=== PATIENT | female | born 1990 | race American Indian/Alaskan Native ===

== ENCOUNTER 2017-12-29 14:19 | Outpatient (CLI) | payer MEDICAID ==
[2017-12-29 16:35] LABS: Hemoglobin 10.4 gm/dl (10.1-14.3); Mean Corpuscular HGB Conc 33 % (30-34); Mean Corpuscular Volume 79 fl (79-97); Platelet Count 247 K/mm3 (140-440); Red Blood Count 4.06 M/mm3 (3.65-5.03)
[2017-12-29 16:40] LABS: Bacteria,Urine 2+ /HPF (Negative); Bilirubin,Urine NEG (Negative); Blood,Urine NEG (Negative); Color,Urine Yellow (Yellow); Mucus,Urine 3+ /HPF; Urobilinogen,Urine < 2.0 mg/dL (<2.0)
[2017-12-29 16:41] LABS: Mean Corpuscular Hemoglobin 26 pg (28-32)
[2017-12-29 16:47] LABS: Uric Acid 4.9 mg/dL (3.5-7.6)
[2017-12-29 16:48] LABS: Alanine Aminotransferase 13 units/L (7-56)
[2017-12-29 17:32] VITALS: BP 155/103
== END 2017-12-29 17:40 | disposition home or self-care (01) ==
LOC: TRG 14:19
PROVIDERS: ATTEND Obstetrics & Gynecology
DX: O47.03 False labor before 37 completed weeks of gestation, third trimester (principal); Z3A.37 37 weeks gestation of pregnancy
CPT/HCPCS: 36415; 59025; 81001; 82565; 83615; 84450; 84460; 84550; 85027

== ENCOUNTER 2018-01-12 08:39 | Inpatient (IN) | payer MEDICAID ==
[2018-01-12] MEDS ORDERED: MINERAL OIL PO PRN (09:30)
[2018-01-12] MEDS ORDERED: STADOL IV PRN (09:30)
[2018-01-12] MEDS ORDERED: BRETHINE IVP PRN (09:30)
[2018-01-12] MEDS ORDERED: BRETHINE SUB-Q PRN (10:16)
[2018-01-12] MEDS ORDERED: CERVIDIL VG ONE (10:16)
[2018-01-12] MEDS ORDERED: PITOCin/NS 20 UNIT/1000ML DRIP 20 UNITS/1,000 ML BAG IV SCH (10:20)
[2018-01-12] MEDS ORDERED: XYLOCAINE 2% INFILTRATI ONE (10:22)
[2018-01-12] MEDS ORDERED: SUBLIMAZE IV PRN (10:22)
[2018-01-12 10:53] LABS: Hematocrit 31.8 % (30.3-42.9); Hemoglobin 10.5 gm/dl (10.1-14.3); Mean Corpuscular HGB Conc 33 % (30-34); Mean Corpuscular Volume 78 fl (79-97); Platelet Count 223 K/mm3 (140-440); Red Blood Count 4.06 M/mm3 (3.65-5.03); Red Cell Distribution Width 16.2 % (13.2-15.2)
[2018-01-12 10:55] LABS: Mean Corpuscular Hemoglobin 26 pg (28-32)
[2018-01-12] MEDS: LACTATED RINGERS 1,000 ML IV SCH ×2 (11:27→19:49)
[2018-01-12 14:59] LABS: Alanine Aminotransferase 12 units/L (7-56); Uric Acid 5.1 mg/dL (3.5-7.6)
[2018-01-12 15:42] LABS: Bacteria,Urine 2+ /HPF (Negative); Bilirubin,Urine NEG (Negative); Blood,Urine SM (Negative); Color,Urine Yellow (Yellow); Mucus,Urine FEW /HPF; Urobilinogen,Urine < 2.0 mg/dL (<2.0)
[2018-01-12] MEDS ORDERED: PITOCin/NS 30 UNIT/500ML 30 UNITS/500 ML BAG IV SCH (22:00)
[2018-01-12] MEDS ORDERED: ZOFRAN ONE (22:34)
[2018-01-13] MEDS ORDERED: XYLOCAINE 2% INFILTRATI ONE (00:18)
--- NOTE | 2018-01-13 00:39 | History and Physical Report ---
History of Present Illness Date of examination: 01/12/18 Date of admission: 01/12/18 08:39 Chief complaint: I'm here to be induced History of present illness: Patient is a 27 year old who presents for induction of labor at 39.6 weeks gestation for induced hypertension. 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 Past History Past Medical History: no pertinent history Past Surgical History: no surgical history [employer]IST History: herpes, trichomonas Family/Genetic History: none Social history: single - Obstetrical History Expected Date of Delivery: 01/13/18 Actual Gestation: 40 Week(s) 0 Day(s) : 2 Number of Living Children: 0 Medications and Allergies Allergies Allergy/AdvReac Type Severity Reaction Status Date / Time No Known Allergies Allergy Unverified 12/29/17 15:27 Home Medications Medication Instructions Recorded Confirmed Last Taken Type Pnv,Calcium 72/Iron/Folic Acid 1 tab PO DAILY 12/29/17 01/12/18 Unknown History [Pnv Plus Multivit Tab] Active Meds: Active Medications Butorphanol Tartrate (Stadol) 2 mg IV Q2H PRN PRN Reason: Pain , Severe (7-10) Ephedrine Sulfate (Ephedrine Sulfate) 10 mg IV Q2M PRN PRN Reason: Hypotension Fentanyl (Sublimaze) 100 mcg IV Q2H PRN PRN Reason: Labor Pain Last Admin: 01/12/18 21:12 Dose: 100 mcg Lactated Ringer's (Lactated Ringers) 1,000 mls @ 125 mls/hr IV DIRECT PEPPER Last Admin: 01/12/18 19:49 Dose: 125 mls/hr Oxytocin/Sodium Chloride (Pitocin/Ns 20 Unit/1000ml Drip) 20 units in 1,000 mls @ 125 mls/hr IV DIRECT PEPPER Oxytocin/Sodium Chloride (Pitocin/Ns 30 Unit/500ml) 30 units in 500 mls @ 4 mls /hr IV TITR PEPPER; Protocol Mineral Oil (Mineral Oil) 30 ml PO QHS PRN PRN Reason: Constipation Terbutaline Sulfate (Brethine) 0.25 mg SUB-Q ONCE PRN PRN Reason: Hyperstimulation/Hypertonicity Terbutaline Sulfate (Brethine) 0.25 mg IVP ONCE PRN PRN Reason: Hyperstimulation/Hypertonicity Review of Systems All systems: negative Cardiovascular: edema Genitourinary: pelvic pain, contractions - Vital Signs Vital signs: Vital Signs Pulse Pulse Ox 63 88 01/12/18 09:17 01/12/18 09:17 Temp Pulse Resp BP Pulse Ox 99.4 F 75 18 183/77 85 01/12/18 20:00 01/13/18 00:34 01/12/18 20:00 01/12/18 23:40 01/13/18 00:34 - Physical Exam Breasts: Positive: deferred Cardiovascular: Regular rate, Normal S1, Normal S2 Lungs: Positive: Clear to auscultation, Normal air movement Abdomen: Positive: normal appearance, soft, normal bowel sounds Genitourinary (Female): Positive: normal external genitalia, normal perenium Vulva: both: normal Vagina: Positive: normal moisture Uterus: Positive: normal size, normal contour Extremities: Positive: normal Deep Tendon Reflex Grade: Normal +2 Results Result Diagrams: 01/12/18 10:05 01/12/18 10:05 Abnormal lab results 01/12/18 01/12/18 01/12/18 Range/Units 10:05 10:05 Unknown MCV 78 L (79-97) fl MCH 26 L (28-32) pg RDW 16.2 H (13.2-15.2) % Creatinine 0.5 L (0.7-1.2) mg/dL Lactate Dehydrogenase 194 H (91-180) units/L Urine WBC (Auto) 30.0 H (0.0-6.0) /HPF All other labs normal. Assessment and Plan IUP at 39.6 weeks here for induction of labor due to PIH. Admit to L&D. Place cervidil, remove at 2230. Anticipate .
--- NOTE | 2018-01-13 00:45 | Procedure Note ---
OB Delivery Note - Delivery Date of Delivery: 01/13/18 Surgeon: COMFORT GIRON Estimated blood loss: 200cc - Vaginal Delivery presentation: vertex Delivery position: OA Intrapartum events: precipitous labor- <3hr Delivery induction: cervidil Delivery monitor: external FHT, external uterine Route of delivery: Delivery placenta: spontaneous Delivery cord: nuchal cord Episiotomy: none Delivery laceration: 1st degree Delivery repair: chromic Anesthesia: none Delivery comments: Viable male delivered over intact perineum with loose nuchal reduced on perineum. Weight 6 pounds 7 ounces. Apgars 9,9. Small 1st laceration repaired with 2.0 chromic. Placenta delivered spontaneously and intact with 3vc. Patient tolerated procedure well. Excellent hemostasis. - A at 1 minute: 9 at 5 minutes: 9 Infant Gender: Male (6 pounds 7 ounces)
[2018-01-13] MEDS ORDERED: BENADRYL PO PRN (03:05)
[2018-01-13] MEDS ORDERED: NORCO 5/325 PO PRN (03:05)
[2018-01-13] MEDS ORDERED: SODIUM CHLORIDE FLUSH SYRINGE 10 ML IV NR (03:05)
[2018-01-13] MEDS ORDERED: MILK OF MAGNESIA PO PRN (03:05)
[2018-01-13] MEDS ORDERED: TUCKS PAD TP PRN (03:05)
[2018-01-13] MEDS ORDERED: TYLENOL PO PRN (03:05)
[2018-01-13] MEDS ORDERED: PHENERGAN PR PRN (03:05)
[2018-01-13] MEDS ORDERED: LANSINOH TP PRN (03:05)
[2018-01-13] MEDS ORDERED: DULCOLAX PR PRN (03:05)
[2018-01-13] MEDS ORDERED: PHENERGAN PO PRN (03:05)
[2018-01-13] MEDS ORDERED: ZOFRAN IV PRN (03:05)
[2018-01-13] MEDS: MOTRIN PO SCH ×3 (05:30→19:14)
[2018-01-13] MEDS: SENOKOT S PO SCH ×2 (05:31→19:14)
[2018-01-13] MEDS: PRENATAL VITAMIN PO SCH (11:12)
[2018-01-13] MEDS: COLACE PO SCH (11:13)
[2018-01-13 14:17] LABS: Hematocrit 28.1 % (30.3-42.9); Hemoglobin 9.1 gm/dl (10.1-14.3)
[2018-01-14] MEDS ORDERED: BOOSTRIX IM ONE (06:00)
[2018-01-14] MEDS: MOTRIN PO SCH ×3 (06:10→13:08)
[2018-01-14] MEDS: PRENATAL VITAMIN PO SCH (09:13)
[2018-01-14] MEDS: COLACE PO SCH ×2 (09:13)
--- NOTE | 2018-01-14 10:41 | Progress Note ---
Subjective - Subjective Date of service: 01/13/18 Interval history: Patient is a 27 year old who presents for induction of labor at 39.6 weeks gestation for induced hypertension. 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 Objective - Vital Signs Latest vital signs: Vital Signs Temp Pulse Resp BP BP Pulse Ox 01/14/18 07:46 97.7 F 80 16 143/79 99 01/14/18 00:00 98.7 F 74 18 115/79 01/13/18 20:00 98.7 F 66 16 114/76 01/13/18 17:28 98.3 F 91 H 18 129/68 100 01/13/18 12:00 97.8 F 86 18 124/72 100 Intake and Output 01/13/18 01/14/18 01/14/18 22:59 06:59 14:59 Intake Total 1140 Balance 1140 Intake: Oral 720 Intake, Free Water 420 Other: Total, Intake Amount 360 # Voids Void 1 - Labs Labs: Abnormal lab results 01/13/18 Range/Units 14:04 Hgb 9.1 L (10.1-14.3) gm/dl Hct 28.1 L (30.3-42.9) %
--- NOTE | 2018-01-14 10:43 | Discharge Summary ---
Providers - Providers Date of Admission: 01/12/18 08:39 Date of discharge: 01/14/18 Attending physician: COMFORT GIRON Primary care physician: COMFORT GIRON Hospitalization Reason for admission: induction of labor Delivery: Episiotomy: none Laceration: 1st degree complications: none Discharge diagnosis: IUP at term delivered baby: male Hospital course: unremarkable Condition at discharge: Good Disposition: DC-01 TO HOME OR SELFCARE Plan - Discharge Medications Prescriptions: Ibuprofen [Motrin] 800 mg PO Q8HR PRN #40 tablet PRN Reason: Pain, Moderate (4-6) - Provider Discharge Summary Activity: routine, no sex for 6 weeks, no heavy lifting 4 weeks, no strenuous exercise Diet: routine Instructions: routine Additional instructions: [] Smoking cessation referral if applicable(refer to patient education folder for contact #) [] Refer to [facility] Booklet Call your doctor immediately for: * Fever > 100.5 * Heavy vaginal bleeding ( >1 pad per hour) * Severe persistent headache * Shortness of breath * Reddened, hot, painful area to leg or breast * Drainage or odor from incision. * Keep incision clean and dry at all times and follow doctor's instructions regarding bathing/showering - Follow up plan Follow up: COMFORT GIRON MD [Primary Care Provider] - 6 Weeks
[2018-01-14 19:37] VITALS: BP 127/75
== END 2018-01-14 20:00 | disposition home or self-care (01) | DRG 774 ==
LOC: LD 08:39 → OB 01-13 02:15
PROVIDERS: ADMIT Obstetrics & Gynecology; ATTEND Obstetrics & Gynecology
PROC: 10E0XZZ Delivery of Products of Conception, External Approach (ICD-10-PCS; principal; 2018-01-13)
PROC: 3E0334Z Introduction of Serum, Toxoid and Vaccine into Peripheral Vein, Percutaneous Approach (ICD-10-PCS; 2018-01-13)
PROC: 3E0P7VZ Introduction of Hormone into Female Reproductive, Via Natural or Artificial Opening (ICD-10-PCS; 2018-01-13)
PROC: 0HQ9XZZ Repair Perineum Skin, External Approach (ICD-10-PCS; 2018-01-13)
DX: O13.4 Gestational [pregnancy-induced] hypertension without significant proteinuria, complicating childbirth (principal); O62.3 Precipitate labor; O69.81X0 Labor and delivery complicated by cord around neck, without compression, not applicable or unspecified; O70.0 First degree perineal laceration during delivery; Z3A.39 39 weeks gestation of pregnancy; Z37.0 Single live birth; B00.9 Herpesviral infection, unspecified; O98.32 Other infections with a predominantly sexual mode of transmission complicating childbirth; A59.9 Trichomoniasis, unspecified
CPT/HCPCS: 36415; 81001; 82565; 83615; 84450; 84460; 84550; 85014; 85018; 85027; 85461; 86592; 86850; 86900; 86901; 99211; A6250; G0463; J2405; J2590; J2790; J3010; J7120